=== PATIENT | female | born 1945 | race Caucasian/White ===

== ENCOUNTER 2020-11-29 10:50 | Inpatient (IN) ==
[2020-11-29] MEDS ORDERED: *HR* Succinylcholine 200 MG/10 ML VIAL IVP ONE (11:03)
[2020-11-29] MEDS ORDERED: Dexamethasone 4 MG/ML VIAL ONE (11:03)
[2020-11-29] MEDS ORDERED: Lidocaine -MPF 4% 5 ML AMPUL ONE (11:03)
[2020-11-29] MEDS ORDERED: *HR* Propofol 200 MG/20 ML VIAL IVP ONE (11:05)
[2020-11-29] MEDS ORDERED: *HR* FentaNYL (PF) 100 MCG/2 ML VIAL ONE (11:05)
[2020-11-29] MEDS ORDERED: Lidocaine -MPF 2% 2 ML VIAL ONE (11:06)
[2020-11-29] MEDS ORDERED: MetroNIDAZOLE 500 MG/100 ML 500 MG/100 ML BAG IVPB ONE (11:36)
[2020-11-29] MEDS ORDERED: Clindamycin 600 MG/50 ML 600 MG/50 ML IV.SOLN IVPB ONE ×2 (11:41→16:40)
[2020-11-29] MEDS ORDERED: Ringers Solution, Lactated 1,000 ML IVC SCH ×2 (11:45→12:00)
[2020-11-29] MEDS ORDERED: *HR* HYDROcodone/Acet 5/325 mg TABLET PO PRN (11:57)
[2020-11-29] MEDS ORDERED: Ondansetron 4 MG/2 ML VIAL IVP PRN (11:57)
[2020-11-29] MEDS ORDERED: *HR* Rocuronium Bromide 50 MG/5 ML VIAL ONE ×2 (12:44→14:55)
[2020-11-29] MEDS ORDERED: *HR* HYDROMORPHONE 2 MG/ML VIAL ONE (14:32)
[2020-11-29] MEDS ORDERED: Acetaminophen IV 1,000 MG/100 ML BAG IVPB ONE (14:33)
[2020-11-29] MEDS ORDERED: *HR* PHENYLEPHRINE 1,000 MCG/10 ML SYRINGE IVP ONE (16:22)
[2020-11-29] MEDS ORDERED: Sugammadex Sodium 200 MG/2 ML VIAL IV ONE (16:54)
[2020-11-29] MEDS ORDERED: *HR* OxyCODONE Immed Rel 5 MG TABLET PO PRN (17:13)
[2020-11-29] MEDS ORDERED: Naloxone 0.4 MG/ML INJ IVP PRN (17:13)
[2020-11-29] MEDS ORDERED: Ondansetron ODT 4 MG TAB.RAPDIS SL PRN (17:13)
[2020-11-29] MEDS: D5% in 0.45% NACL 1,000 ML IVC SCH (18:30)
[2020-11-29] MEDS: *HR* HYDROmorphone PF 0.5 MG/0.5 ML SYRINGE IVP PRN ×2 (19:45→20:15)
[2020-11-29] MEDS: Acetaminophen 325 MG TABLET PO SCH (20:53)
[2020-11-29] MEDS: Ibuprofen 600 MG TABLET PO SCH (20:53)
[2020-11-29] MEDS: MetroNIDAZOLE 500 MG/100 ML 500 MG/100 ML BAG IVPB SCH (20:53)
[2020-11-30] MEDS: MetroNIDAZOLE 500 MG/100 ML 500 MG/100 ML BAG IVPB SCH ×3 (05:36→20:33)
[2020-11-30 06:16] LABS: BUN/Creatinine Ratio 21 (6-26); Blood Urea Nitrogen 13 mg/dL (8-23); Carbon Dioxide 25 mEq/L (23-29); Chloride 106 mEq/L (98-107); Glucose 180 mg/dL (70-105); Magnesium 1.7 mg/dL (1.6-2.6); Osmolality,Calculated 293 (280-300); Phosphorous 3.3 mg/dL (2.7-4.5); Potassium 3.6 mEq/L (3.5-5.1); Sodium 139 mEq/L (136-145); eGFR For African Americans > 60 (> 60); eGFR For Non-African Americans > 60 (> 60)
[2020-11-30] MEDS: Ibuprofen 600 MG TABLET PO SCH ×2 (09:53→16:44)
[2020-11-30] MEDS: Acetaminophen 325 MG TABLET PO SCH ×2 (09:53→20:32)
[2020-11-30] MEDS: D5% in 0.45% NACL 1,000 ML IVC SCH (11:14)
[2020-12-01] MEDS: MetroNIDAZOLE 500 MG/100 ML 500 MG/100 ML BAG IVPB SCH (05:20)
[2020-12-01 06:33] VITALS: BP 118/72
[2020-12-01] MEDS ORDERED: *HR* Enoxaparin 40 MG/0.4 ML SYRINGE SQ SCH (07:00)
[2020-12-01] MEDS: Ibuprofen 600 MG TABLET PO SCH (08:57)
[2020-12-01] MEDS: Acetaminophen 325 MG TABLET PO SCH (08:57)
== END 2020-12-01 15:20 | disposition home or self-care (01) | DRG 331 ==
LOC: SAMDAY 10:50 → 3ANU 18:17
PROVIDERS: ADMIT Surgery; ATTEND Surgery